=== PATIENT | female | born 1985 | race Caucasian/White ===

== ENCOUNTER 2017-08-30 18:43 | Emergency (ER) | payer BC ==
[2017-08-30 19:54] VITALS: BP 141/87
--- NOTE | 2017-08-30 20:58 | UC ---
Christine Harding Gabriel, scribed for Van Rivas MD on 08/30/17 at 2043 . FLU HPI - HPI Summary HPI Summary: This patient is a 32 year old F presenting to [facility] [place] with a chief complaint of a flu like illness since 08-28-17. The patient rates the pain 4/10 in severity. Patient reports nasal congestion, myalgia, CP, and cough. Patient denies fever and chills. 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 - History of Current Complaint Chief Complaint: UCGeneralIllness Stated Complaint: FLU-LIKE Time Seen by Provider: 08/30/17 20:02 Hx Obtained From: Patient Onset/Duration: Lasting Days, Still Present Severity Currently: Moderate Severity Initially: Moderate Pain Intensity: 4 Pain Scale Used: 0-10 Numeric Associated Signs & Symptoms: Positive: Myalgia, Cough, Nasal Congestion - Allergy/Home Medications Allergies/Adverse Reactions: Allergies Allergy/AdvReac Type Severity Reaction Status Date / Time No Known Allergies Allergy Verified 08/30/17 19:54 Home Medications: Home Medications Citalopram TAB* [Celexa TAB*] 10 mg PO DAILY 08/30/17 [History Confirmed ] LORazepam [Ativan 0.5 MG TAB] 0.5 mg PO Q6H PRN 08/30/17 [History Confirmed ] diPHENhydraMINE PO* [Benadryl PO 50 MG CAP*] 50 mg PO Q6H PRN 08/30/17 [History Confirmed 08/30/17] PMH/Surg Hx/FS Hx/Imm Hx Previously Healthy: Yes Other History Of: Negative For: HIV, Hepatitis B - Surgical History Surgical History: Yes Surgery Procedure, Year, and Place: 2007 WISDOM TEETH- [place], [place]. 2001 LEAP PROCEDURE- [place], [place] - Family History Known Family History: Positive: Cardiac Disease, Diabetes, Other - CVA Negative: Hypertension, Renal Disease, Respiratory Disease, Seizure Disorder - Social History Occupation: Employed Full-time Lives: With Family Alcohol Use: Daily Alcohol Amount: 3 WINE OR BEERS/DAY Substance Use Type: None Smoking Status (MU): Light Every Day Tobacco Smoker - 1 per day Have You Smoked in the Last Year: No Review of Systems ENT: Sinus Congestion Respiratory: Cough Cardiovascular: Chest Pain Musculoskeletal: Myalgia All Other Systems Reviewed And Are Negative: Yes Physical Exam Triage Information Reviewed: Yes Vital Signs: Initial Vital Signs Temp 97.8 F 08/30/17 19:50 Pulse 79 08/30/17 19:50 Resp 20 08/30/17 19:50 BP 141/87 08/30/17 19:50 Pulse Ox 100 08/30/17 19:50 Vital Signs Reviewed: Yes - Additional Comments VITAL SIGNS: Reviewed. GENERAL: Patient is a well developed and nourished F who is lying comfortable in the stretcher. Patient is not in any acute respiratory distress. HEAD AND FACE: Normocephalic EYES: PERRLA, EOMI x 2. EARS: Hearing grossly intact. MOUTH: Oropharynx within normal limits. NECK: Supple, trachea is midline, no adenopathy, no JVD, no carotid bruit. CHEST: Symmetric, no tenderness at palpation LUNGS: Clear to auscultation bilaterally. No wheezing or crackles. CVS: Regular rate and rhythm, S1 and S2 present, no murmurs or gallops appreciated. ABDOMEN: Soft, non-tender. Bowel sounds are normal. No abdominal abnormal pulsations. EXTREMITIES: Full ROM in all major joints, no edema, no cyanosis or clubbing. NEURO: Alert and oriented x 3. No acute neurological deficits. Speech is normal and follows commands. SKIN: Dry and warm Flu Course/Dx - Course Course Of Treatment: The patient was negative for influenza A and B. I discussed all the findings and test results with the patient. Pt was instructed to return to the urgent care or go to ER immediately if any of the symptoms return or worsens. Plan of care was discussed with the patient and pt understands and agrees. All questions were answered to patient satisfaction. There were no further complaints or concerns. The patient was found to have increase BP in UC. The patient will follow up with PCP for better control of BP. Patient was diagnosed with URI but requested Tamiflu. - Differential Dx/Diagnosis Differential Diagnosis/HQI/PQRI: Bronchitis, Influenza, Pneumonia, Upper Respiratory Infection Provider Diagnoses: URI, Elevated blood pressure without history of hypertension Discharge - Discharge Plan Condition: Stable Disposition: HOME Prescriptions: Oseltamivir CAP* [Tamiflu CAP*] 75 mg PO BID #10 cap Patient Education Materials: Upper Respiratory Infection (DC) Referrals: Almaz Longoria MD [Primary Care Provider] - Additional Instructions: Your blood pressure was elevated during todays visit; please follow up with your primary care provider within a week for further evaluation. The documentation as recorded by the Christine ling Gabriel accurately reflects the service I personally performed and the decisions made by me, Van Rivas MD.
== END 2017-08-30 20:45 | disposition home or self-care (01) ==
LOC: UCEAST 18:43
DX: J06.9 Acute upper respiratory infection, unspecified (principal); R03.0 Elevated blood-pressure reading, without diagnosis of hypertension; Z72.0 Tobacco use
CPT/HCPCS: 87502; 99212; G0463

== ENCOUNTER 2018-12-08 11:58 | Emergency (ER) | payer BC ==
[2018-12-08 12:39] VITALS: BP 118/67
--- NOTE | 2018-12-08 13:50 | UC ---
General HPI - HPI Summary HPI Summary: Yesterday developed sore throat, left ear pain, congestion, full body aches and chills. Took nyquil last night. No N/V/D. No rash. No cough. Feels run down. No documented temp. Meds: REviewed Worried her step son who is 8 yrs old is coming this weekend. Works as [employer] on [employer] - History of Current Complaint Chief Complaint: UCRespiratory Stated Complaint: EAR PAIN SORE THROAT CHILLS Time Seen by Provider: 12/08/18 13:44 Hx Last Menstrual Period: IUD in place Pain Intensity: 5 - Allergy/Home Medications Allergies/Adverse Reactions: Allergies Allergy/AdvReac Type Severity Reaction Status Date / Time No Known Allergies Allergy Verified 12/08/18 12:39 Home Medications: Home Medications Ascorbic Acid [Vitamin C] 500 mg PO ONCE PRN 12/08/18 [History Confirmed ] Dm/PE/Acetaminophen/Doxylamine [Vicks Nyquil Severe Cold-Flu] 1 each PO ONCE PRN 12/08/18 [History Confirmed 12/08/18] Ibuprofen 600 mg PO DAILY PRN 12/08/18 [History Confirmed 12/08/18] Multivitamin [Multivitamins] 1 cap PO ONCE PRN 12/08/18 [History Confirmed 12/08] PMH/Surg Hx/FS Hx/Imm Hx Previously Healthy: Yes Other History Of: Negative For: HIV, Hepatitis B - Surgical History Surgical History: Yes Surgery Procedure, Year, and Place: 2007 WISDOM TEETH- [place], [place]. 2001 LEAP PROCEDURE- [place], [place]. 2012, external fixation finger right hand - Family History Known Family History: Positive: Cardiac Disease, Diabetes, Other - CVA Negative: Hypertension, Renal Disease, Respiratory Disease, Seizure Disorder - Social History Alcohol Use: Daily Alcohol Amount: 3 WINE OR BEERS/DAY Substance Use Type: None Smoking Status (MU): Former Smoker Have You Smoked in the Last Year: No Review of Systems All Other Systems Reviewed And Are Negative: Yes Physical Exam Triage Information Reviewed: Yes Appearance: Well-Appearing Vital Signs: Initial Vital Signs Temp 98.7 F 12/08/18 12:32 Pulse 84 12/08/18 12:32 Resp 18 12/08/18 12:32 BP 118/67 12/08/18 12:32 Pulse Ox 100 12/08/18 12:32 ENT: Positive: Pharyngeal erythema, Nasal congestion, Other - clear fluid b/l Neck: Positive: Supple, Tenderness @ - anterior cervical chain on left Respiratory: Positive: Lungs clear, Normal breath sounds Cardiovascular: Positive: RRR, No Murmur Course/Dx - Course Course Of Treatment: This is a 33 yr old with with sore throat, body aches and congestion Assessment Nontoxic appearing Rapid strep: NEgative Flu: Negative Plan Flu and STrep are both negative Appears to be a viral syndrome Continue supportive care Continue to rest, fluids, ibuprofen as needed for pain/fever Can do sudafed during the day as a decongestant - Diagnoses Provider Diagnosis: Viral syndrome Discharge - Sign-Out/Discharge Documenting (check all that apply): Patient Departure All imaging exams completed and their final reports reviewed: No Studies - Discharge Plan Condition: Good Disposition: HOME Patient Education Materials: Viral Syndrome (ED) Referrals: Almaz Longoria MD [Primary Care Provider] - Additional Instructions: Flu and STrep are both negative Appears to be a viral syndrome Continue supportive care Continue to rest, fluids, ibuprofen as needed for pain/fever Can do sudafed during the day as a decongestant - Billing Disposition and Condition Condition: GOOD Disposition: Home
[2018-12-08 14:14] LABS: Influenza A Molecular NEGATIVE (Negative); Influenza B Molecular NEGATIVE (Negative)
== END 2018-12-08 14:31 | disposition home or self-care (01) ==
LOC: UCEAST 11:58
DX: B34.9 Viral infection, unspecified (principal); J02.9 Acute pharyngitis, unspecified; H92.02 Otalgia, left ear; Z87.891 Personal history of nicotine dependence
CPT/HCPCS: 87651; 99211; G0463

== ENCOUNTER 2019-04-13 07:02 | Emergency (ER) | payer BC ==
--- OUTSIDE RECORDS SUMMARY | 2019-04-13 07:06 | XMS REPORT | Continuity of Care Document ---
:1985 External Reference #:[id number] Author Name Rin Barahona NP (transmitted by agent of provider Quin Chandler) Address [address], [place] [address] Care Team Providers Name Role Phone Almaz Longoria MD - Internal Care Team Information Predatory Animal Exterminator [phone] Medicine Problems Description No Information Available Social History Type Date Description Comments Sex Unknown Tobacco Use Start: Unknown End: Former Cigarette Smoker Unknown 1-5 Cigarettes Daily Smoking Status Reviewed: 03/22/19 Former Cigarette Smoker 1-5 Cigarettes Daily ETOH Use Drinks 6 Alcoholic Beverages Per Week Tobacco Use Start: Unknown End: Patient is a former Unknown smoker Exercise Exercises regularly Horseback Riding 3-4 Type/Frequency times per week Allergies, Adverse Reactions, Alerts Description No Known Drug Allergies Medications Active Medications SIG Qnty Indications Ordering Date Provider Progesterone 1 by mouth every 30caps Heidi Lara, N.P. 12/16/2018 Micronized day 100mg Capsules Lorazepam 1 tablet by mouth Unknown 0.5mg Tablets as needed for sleep Liletta (52 MG) 11/2017 Unknown 19.5mcg/Day IUD Vitamin C 1 by mouth every Unknown 500mg day Capsules CBD Oil cbd oil 1 or 2 Unknown drops topically daily for joint pain Immunizations Description No Information Available Vital Signs Date Vital Result Comment 03/22/2019 3:00pm Height 68 inches 5'8" Weight 159.00 lb Heart Rate 51 /min BP Systolic 112 mmHg BP Diastolic 73 mmHg Body Temperature 97.9 F O2 % BldC Oximetry 100 % BMI (Body Mass Index) 24.2 kg/m2 02/23/2019 8:02am Height 68 inches 5'8" Weight 162.00 lb Heart Rate 67 /min BP Systolic 117 mmHg BP Diastolic 80 mmHg Body Temperature 98.2 F O2 % BldC Oximetry 99 % BMI (Body Mass Index) 24.6 kg/m2 Results Test Date Facility Test Result H/L Range Note Celiac Hla 02/27/2019 [facility] [id number] SEE BELOW 1 [address] [place] [address] [phone] [id number] SEE BELOW 2 Celiac Gene Pairs Present? 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 Negative Mthac Interpretation See Comment 6 Mthac Reviewed By See Comment 7 Laboratory test 02/27/2019 [facility] T3 Reverse 19 ng/dL 10- 24 8 finding [address] [place] [address] [phone] Vitamin B6 02/27/2019 [facility] Pyridoxal 56 g/L Abnormal 5 -50 9 [facility] 5[place] [address] [phone] Pyridoxic Acid 24 g/L 3-30 10 Anti Gliadin Igg And Iga 02/27/2019 [facility] Gliadin IgG < 10.0 U 11 AB [address] [place] [address] [phone] Gliadin IgA <10.0 U 12 Laboratory test 02/27/2019 [facility] Immunoglobulin A 112 mg/ dL 61 - 13 finding [facility] (Iga) [address] [place] [address] [phone] Heavy Metal 02/27/2019 [facility] Arsenic 2 ng/mL 0-12 14 [address] [address] [place] [address] [phone] Lead <1.0 g/dL 0.0-4.9 15 Mercury 2 ng/mL 0-9 16 Cadmium <0.2 ng/mL 0.0-4.[address] [facility] [place] [address] [facility]ly [facility] Guardian First Name MARIELLE Guardian Last Name KHANH Venous/Capillary Heavy Metals Venous Patient Race WHITE Submitting Laboratory Phone [phone] Laboratory test 02/27/2019 [facility] CRP High 0.72 mg/L < 2.00 finding [address] [facility] [place] [address] [phone] TSH (Thyroid Stim Horm) 2.92 mcIU/mL Normal 0.34-5.60 Free T4 (Free Thyroxine) 0.84 ng/dL Normal 0.61-1.12 Thyroxine 7.00 g/dL Normal 6.09-12.23 T3 Free 3.30 pg/mL Normal 2.5-3.9 T3 Total 88 ng/dL Normal 87-178 Ferritin 90.0 ng/mL Normal 11-307 Folic Acid (Folate) > 20.00 ng/mL >3.99 Vitamin B12 953 pg/mL High 180-914 19 Insulin Level 2.9 mcIU/mL Normal 2.0-16.0 Vitamin D Total 25(Oh) 27.3 ng/mL Normal 20-50 20 Thyroglobulin AB 0.0 IU/mL <4.0 Thyroperoxidase AB 0.19 IU/mL Normal <9 Homocysteine 8 mcmol/L 21 Copper, Serum 0.98 g/mL 0.75-1.45 22 Selenium 133 ng/mL 70-150 23 Zinc Serum 1.07 g/mL 0.66-1.10 24 Lipid Profile 02/27/2019 [facility] Triglycerides 90 mg/dL 25 (Trig/Chol/HDL) [address] [place] [address] [phone] Cholesterol 181 mg/dL 26 HDL Cholesterol 58.1 mg/dL 27 LDL Cholesterol 105 mg/dL 28 Comp Metabolic 02/27/2019 [facility] Sodium 139 mmol/L Normal 135-145 Panel [address] [place] [address] [phone] Potassium 4.6 mmol/L Normal 3.5-5.0 Chloride 105 mmol/L Normal 101-111 Co2 Carbon Dioxide 26 mmol/L Normal 22-32 Anion Gap 8 mmol/L Normal 2-11 Glucose 87 mg/dL Normal 70-100 Blood Urea Nitrogen 8 mg/dL Normal 6-24 Creatinine 0.80 mg/dL Normal 0.51-0.95 BUN/Creatinine Ratio 10.0 Normal 8-20 Calcium 9.3 mg/dL Normal 8.6-10.3 Total Protein 6.9 g/dL Normal 6.4-8.9 Albumin 4.9 g/dL Normal 3.2-5.2 Globulin 2.0 g/dL Normal 2-4 Albumin/Globulin Ratio 2.5 Normal 1-3 Total Bilirubin 0.70 mg/dL Normal 0.2-1.0 Alkaline Phosphatase 52 U/L Normal 34-104 Alt 16 U/L Normal 7-52 Ast 16 U/L Normal 13-39 Egfr Non- 82.1 >60 Egfr 99.4 >60 29 Laboratory test 02/27/2019 [facility] Erythrocyte Sed 6 mm/Hr Normal 0-[address] [place] [address] [phone] Hemoglobin A1c (Glyco HGB) 4.9 % Normal 4.0-5.6 30 CBC Auto 02/27/2019 [facility] White Blood 5.0 10^3/uL Normal 3.5-10.[address] [place] [address] [phone] Red Blood Count 4.31 10^6/uL Normal 3.70-4.87 Hemoglobin 14.2 g/dL Normal 12.0-16.0 Hematocrit 40 % Normal 35-47 Mean Corpuscular Volume 93 fL Normal 80-97 Mean Corpuscular Hemoglobin 33 pg High 27-31 Mean Corpuscular HGB Conc 35 g/dL Normal 31-36 Red Cell Distribution Width 13 % Normal 10-15 Platelet Count 260 10^3/uL Normal 150-450 Mean Platelet Volume 9.0 fL Normal 7.4-10.4 Abs Neutrophils 2.5 10^3/uL Normal 1.5-7.7 Abs Lymphocytes 2.0 10^3/uL Normal 1.0-4.8 Abs Monocytes 0.3 10^3/uL Normal 0-0.8 Abs Eosinophils 0.2 10^3/uL Normal 0-0.6 Abs Basophils 0.1 10^3/uL Normal 0-0.2 Abs Nucleated RBC 0.0 10^3/uL Granulocyte % 49.1 % Lymphocyte % 40.1 % Monocyte % 6.6 % Eosinophil % 3.0 % Basophil % 1.2 % Nucleated Red Blood Cells % 0.1 Laboratory test finding 02/23/2019 [facility] Vitamin B6 < pending> [address] [place] [address] [phone] Vitamin B12 And Folate 02/23/2019 [facility] Vitamin B12 < pending> Serum [address] [place] [address] [phone] Folic Acid (Folate) <pending> Laboratory test finding 02/23/2019 [facility] Ferritin <pending > [address] [place] [address] [phone] Selenium <pending> T3 Free <pending> T3 Reverse <pending> T3 Total <pending> TSH (Thyroid Stim Horm) <pending> Free T4 (Free Thyroxine) <pending> Thyroxine <pending> Vitamin D Total 25(Oh) <pending> Zinc Serum <pending> Laboratory test 02/23/2019 [facility] Insulin Level <pending> finding [address] [place] [address] [phone] Anti-Thyroid 02/23/2019 [facility] Thyroperoxidase AB <pending> Antibodies Screen [address] [place] [address] [phone] Thyroglobulin AB <pending> Laboratory test 02/23/2019 [facility] Hemoglobin A1c <pending> finding [address] (Glyco HGB) [place] [address] [phone] Homocysteine <pending> Immunoglobulin A (Iga) <pending> Laboratory test 02/23/2019 [facility] Copper, Serum <pending> finding [address] [place] [address] [phone] Erythrocyte Sed Rate <pending> Laboratory test 02/23/2019 [facility] CRP High <pending> finding [address] [place] [address] [phone] Laboratory test 01/07/2019 [facility] Cytology Non-Hand I Blocker SEE RESULT [address] [place] [address] [phone] Laboratory test 12/15/2018 [facility] Cytology SEE RESULT [address] [place] [address] [phone] 1 RESULT: 02:01,05:01 REFERENCE VALUE Not Applicable 2 RESULT: 02:01,02:02 DQ Serologic Equivalent: 2,2 REFERENCE VALUE Not Applicable 3 These genes are permissive for celiac disease. The absence of HLA celiac permissive genes would make the presence of celiac disease unlikely. However, these genes can also be present in the normal population. ADDITIONAL INFORMATION Method: Molecular typing of HLA antigens performed using reverse SSOP and/or SSP methods, reported as serological equivalents and low to medium resolution molecular values. Performing Laboratory CLIA# [id number] Test Performed by: [place] [id number] 4 This individual DOES NOT have the Methylenetetrahydrofolate reductase (MTHFR) C677T gene mutation. In the absence of the MTHFR C677T gene mutation, other causes of hyperhomocysteinemia should be considered (renal failure, zinc deficiency, leukemia, psoriasis, or antifolate drug therapy). If clinically indicated, suggest Coagulation Consultation 28504 (Thrombophilia Profile) to complete the evaluation for an inherited or acquired thrombosing disorder (i.e., thrombophilia). Consider genetic consultation and counseling of potentially affected family members regarding laboratory testing. ADDITIONAL INFORMATION This test is a direct mutation analysis using PCR amplification, signal generation and release by cleavage of sequence specific alleles ([employer], [employer], [place], [place]). This test has been modified from the morale officer's instructions. Its performance characteristics were determined by [facility] in a manner consistent with CLIA requirements. This test has not been cleared or approved by the U.S. Food and Drug Administration. 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 MTHAC Q4630S carriers are not at increased risk for thrombosis in the absence of hyperhomocysteinemia. In the absence of alternative causes, heterozygous carriers of MTHAC U9376J are not at increased risk for hyperhomocysteinemia. Hyperhomocysteinemia is a relatively weak risk factor for both venous thromboembolism and arterial thrombosis. The MTHAC T2776W gene mutation test does not detect other causes of hyperhomocysteinemia due to acquired disorders (renal failure, zinc deficiency, leukemia, psoriasis, or antifolate drug therapy). If clinically indicated, suggest Coagulation Consultation 11363 (Thrombophila Profile) to complete the evaluation for an inherited or acquired thrombosing disorder (i.e., thrombophilia). Consider genetic consultation and counseling of potentially affected family members regarding laboratory testing. ADDITIONAL INFORMATION This test is a direct mutation analysis using PCR amplification, signal generation and release by cleavage of sequence specific alleles ([employer], [employer], [place], [place]). This test has been modified from the morale officer's instructions. Its performance characteristics were determined by [facility] in a manner consistent with CLIA requirements. This test has not been cleared or approved by the U.S. Food and Drug Administration. 7 RESULT: CHRISTY Warner This test is a direct mutation analysis using PCR amplification, signal generation and release by cleavage of sequence specific alleles ([employer], [employer], [place], [place]). This test has been modified from the morale officer's instructions. Its performance characteristics were determined by [facility] in a manner consistent with CLIA requirements. This test has not been cleared or approved by the U.S. Food and Drug Administration. Test Performed by: [facility] - [facility] [address] [place] [address] 8 ADDITIONAL INFORMATION This test was developed and its performance characteristics determined by [facility] in a manner consistent with CLIA requirements. This test has not been cleared or approved by the U.S. Food and Drug Administration. Test Performed by: [facility] [address] [place] [address] 9 In this sample, the elevated pyridoxal 5-phosphate is likely related to dietary supplementation. ADDITIONAL INFORMATION This test was developed and its performance characteristics determined by [facility] in a manner consistent with CLIA requirements. This test has not been cleared or approved by the U.S. Food and Drug Administration. 10 ADDITIONAL INFORMATION This test was developed and its performance characteristics determined by [facility] in a manner consistent with CLIA requirements. This test has not been cleared or approved by the U.S. Food and Drug Administration. Test Performed by: [facility] - [address] [address] 11 REFERENCE VALUE <20.0 (Negative) Test Performed by: [facility] - [address] [address] 12 REFERENCE VALUE <20.0 (Negative) 13 Test Performed by: [facility] - [address] [address] 14 ADDITIONAL INFORMATION This test was developed and its performance characteristics determined by [facility] in a manner consistent with CLIA requirements. This test has not been cleared or approved by the U.S. Food and Drug Administration. 15 ADDITIONAL INFORMATION Testing performed by Inductively Coupled Plasma-Mass Spectrometry (ICP-MS). This test was developed and its performance characteristics determined by [facility] in a manner consistent with CLIA requirements. This test has not been cleared or approved by the U.S. Food and Drug Administration. 16 ADDITIONAL INFORMATION This test was developed and its performance characteristics determined by [facility] in a manner consistent with CLIA requirements. This test has not been cleared or approved by the U.S. Food and Drug Administration. 17 ADDITIONAL INFORMATION This test was developed and its performance characteristics determined by [facility] in a manner consistent with CLIA requirements. This test has not been cleared or approved by the U.S. Food and Drug Administration. 18 Test Performed by: [facility] [employer] [address] [place] [address] 19 Normal Range 180 to 914 Indeterminate Range 145 to 180 Deficient Range <145 20 Total 25-Hydroxyvitamin D2 and D3 (25-OH-VitD) <10 ng/mL (severe deficiency) 10-19 ng/mL (mild to moderate deficiency) 20-50 ng/mL (optimum levels) 51-80 ng/mL (increased risk of hypercalciuria) >80 ng/mL (toxicity possible) 21 REFERENCE VALUE <=13 (Fasting) ADDITIONAL INFORMATION This test was developed and its performance characteristics determined by [facility] in a manner consistent with CLIA requirements. This test has not been cleared or approved by the U.S. Food and Drug Administration. Test Performed by: [facility] [address] [place] [address] 22 ADDITIONAL INFORMATION This test was developed and its performance characteristics determined by [facility] in a manner consistent with CLIA requirements. This test has not been cleared or approved by the U.S. Food and Drug Administration. Test Performed by: [facility] - [address] [address] 23 ADDITIONAL INFORMATION This test was developed and its performance characteristics determined by [facility] in a manner consistent with CLIA requirements. This test has not been cleared or approved by the U.S. Food and Drug Administration. Test Performed by: [facility] - [address] [address] 24 ADDITIONAL INFORMATION This test was developed and its performance characteristics determined by [facility] in a manner consistent with CLIA requirements. This test has not been cleared or approved by the U.S. Food and Drug Administration. Test Performed by: [facility] - [address] [address] 25 Desirable: <150 Borderline High: 150-199 High: 200-499 Very High: >500 26 Desirable: <200 Borderline High: 200-239 High: >239 27 Low: <40 Desirable: 40-60 High: >60 28 Desirable: <100 Near Optimal: 100-129 Borderline High: 130-159 High: 160-189 Very High: >189 29 Because ethnic data is not always readily available, this report includes an eGFR for both -Americans and non- Americans. The National Kidney Disease Education Program (NKDEP) does not endorse the use of the MDRD equation for patients that are not between the ages of 18 and 70, are , have extremes of body size, muscle mass, or nutritional status, or are non- or non-. According to the National Kidney Foundation, irrespective of diagnosis, the stage of the disease is based on the level of kidney function: Stage Description GFR(mL/min/1.73 m(2)) 1 Kidney damage with normal or decreased GFR 90 2 Kidney damage with mild decrease in GFR 60-89 3 Moderate decrease in GFR 30-59 4 Severe decrease in GFR 15-29 5 Kidney failure <15 (or dialysis) 30 Therapeutic target for the treatment of diabetes mellitus patients is <7% HBA1C, and in selective patients <6.0%. Please refer to [place] [employer] diabetic care guidelines for further information. 31 SEE RESULT BELOW Name: MARIELLE DAVENPORT : [address]: Heidi Lara NP Acct: [id number] Unit: [id number] AGE: 33 Location: [facility] Re01/08/19 SEX: F Status: REG REF SPEC: [id number] FROILAN: 01/07/19-[address] [facility] [address]: Heidi Lara NP REQ: [id number] RECD: 01/08/19-1726 STATUS: SOUT _ ORDERED: PTH HANDLING CH, NG THIN LAYER COMMENTS: [id number] FINAL DIAGNOSIS Anal scraping: -- Benign appearing squamous epithelium. HPV, Rectal Source has been performed at [facility] in [place], [place]. The testing reveals: / (original report scanned into Pathology Results). Anal cytologic material - ANAL PAP FOR HPV TESTING GROSS DESCRIPTION Received anal pap in ThinPrep vial for HPV Testing done [facility]. Signed by and Reported on: Luiz Buchanan MD 0920 END OF REPORT DEPARTMENT OF PATHOLOGY, [address] [place] [address] Luiz Buchanan M.D. Director [facility] # [id number] 32 SEE RESULT BELOW Name: MARIELLE DAVENPORT : [address]: Heidi Lara STATISTICAL DEVELOPER Acct: [id number] Unit: [id number] AGE: 33 Location: [facility] Re12/15/18 SEX: F Status: REG REF SPEC: [id number] FROILAN: 12/15/18-[address]: Heidi Lara NP Q: [id number] RECD: 12/16/18 STATUS: SOUT _ ORDERED: TP IMAGE ANALYS, HPV/Thin Prep COMMENTS: [id number] Negative for Intraepithelial lesion or Malignancy Date Time Test Result Flag (u) Normal Range 12/15/18 1705 HPV RNA Negative Negative The high-risk HPV types detected by the assay include: 16, 18, 31, 33, 35, 39, 45, 51, 52, 56, 58, 59, 66, and 68. A. Ectocervical/Endocervical Specimen Adequacy: Satisfactory of evaluation Transformation zone component identified Patient Information: HPV: High risk HPV RNA testing regardless of pap results. Actual Specimen Date: 12/15/18 ?: N Post Menopausal?: N Hysterectomy?: N Signed by and Reported on: CROW Piper (ASCP) [id number] This Pap test was evaluated with the assistance of the ThinPrep Test Imaging System. Due to cytologic findings at the banking services advisor microscope, comprehensive manual rescreening by a Manager Of Finance may be required. The Pap Smear is a screening test designed to aid in the detection of premalignant and malignant conditions of the uterine cervix. It is not a diagnostic procedure and should not be used as the sole means of detecting cervical cancer. Both false- positive and false- negative reports do occur. Depending on your risk status, a Pap smear should be obtained and evaluated every 1-3 years. END OF REPORT DEPARTMENT OF PATHOLOGY, [address] [place] [address] Luiz Buchanan M.D. Director [facility] # [id number] Procedures Description No Information Available Medical Devices Description No Information Available Encounters Type Date Location Provider Dx Diagnosis Office Visit 01/11/2019 [facility] Pedro Mercedes MD R10.2 Pelvic and 9:30a [facility] at perineal pain [place] N92.5 Other specified irregular menstruation Office Visit 01/08/2019 3:00p [facility] Heidi Lara, R10.2 Pelvic and [facility] N.P. 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 N.P. perineal pain N92.5 Other specified irregular menstruation N94.12 Deep dyspareunia R35.1 Nocturia Assessments Date Code Description Provider 03/22/2019 R53.83 Other fatigue Rin Barahona, STATISTICAL DEVELOPER 03/22/2019 F41.9 Anxiety disorder, unspecified Rin [place], STATISTICAL DEVELOPER 03/22/2019 E72.12 Methylenetetrahydrofolate reductase deficiency Rin Barahona, STATISTICAL DEVELOPER 03/22/2019 K59.00 Constipation, unspecified Rin [place], STATISTICAL DEVELOPER 02/23/2019 R53.83 Other fatigue Rin [place], STATISTICAL DEVELOPER 02/23/2019 F41.9 Anxiety disorder, unspecified Rin [place], STATISTICAL DEVELOPER 02/23/2019 G89.29 Other chronic pain iRn Barahona, STATISTICAL DEVELOPER 02/23/2019 K59.00 Constipation, unspecified Rin Brooklyn, STATISTICAL DEVELOPER 02/23/2019 G47.00 Insomnia, unspecified Rin Barahona, TONY 02/23/2019 N92.5 Other specified irregular menstruation Rin Barahona NP 01/11/2019 R10.2 Pelvic and perineal pain Pedro Mercedes MD 01/11/2019 N92.5 Other specified irregular menstruation Pedro Mercedes MD 01/08/2019 R10.2 Pelvic and perineal pain Heidi Lara N.P. 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 uteri 12/15/2018 R10.2 Pelvic and perineal pain Heidi Lara N.P. 12/15/2018 N92.5 Other specified irregular menstruation Heidi Lara N.P. 12/15/2018 N94.12 Deep dyspareunia Heidi Lara N.P. 12/15/2018 R35.1 Nocturia Heidi Lara N.P. Plan of Treatment 03/22/2019 - Rin Barahona, NPR53.83 Other fatigueRecommendations:Daily exercise, stress reduction, and good sleep hygiene. Focus on a nutrient dense diet heavily plant based, protein with every meal, healthy fats, little to no sugar. Recommend continuing on a gluten free diet for a total of 3 months ( strictly) as you do have the celiac genes pairs which places youat a higher risk for non-celiac gluten sensitivity. 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 Be sure to go for the activated forms of folate, B6, and B12: 1.B complex: - would hold off on this for now L-5-MTHF Folate: Methylfolate B6: Norxxbyol-1-Zfwhxtebh (P5P) B12: Methylcobalamine support liver detoxification : 2. NAC (Acetyl Cysteine) 600 mg twice daily3. Milk thistle and Nettle tea 4. Sweat! exercise, saunas 5. [place] oil liver packs a few times a month 6. Dry [place]ander daily Your homocysteine level is 8 ([facility] lab states <13 is normal) - Functional Medicine has an optimal ranger (evidence based) between 4-7. This could be multifactorial and could belinked to a problem with methylation. Healthy methylation pathways and balanced homocysteine levels protect your DNA. Methylation helps keep good genes turned on and bad genes turned off, but when methylation is impaired, it can trigger an autoimmune response. Your body has built-in systems to keep homocysteine levels in check ?? namely methylation. However, to have healthy methylation pathways, yourbody needs beneficial methyl donors ?? B vitamins in particular ?? from the foods you eat, which convert homocysteine to SAMe and glutathione. For this reason, high homocysteine levels can also be a consequence of poor absorption of B vitamins. Strict vegetarians and vegans can also be prone to methylation impairments due to a potential deficiency of vitamin B12. These are just some of the factors that can raise homocysteine.K59.00 Constipation, unspecifiedRecommendations:plan for SIBO test - once sent in 2 weeks get back me. schedule follow up 2-3 weeks after test Functional Status Description No Information Available Mental Status Description No Information Available Referrals Description No Information Available
--- OUTSIDE RECORDS SUMMARY | 2019-04-13 07:06 | XMS REPORT | Continuity of Care Document ---
:1985 External Reference #:[id number] Author Name Rin Barahona NP (transmitted by agent of provider Quin Chandler) Address [address], [place] [address] Care Team Providers Name Role Phone Almaz Longoria MD - Internal Care Team Information Health Care Liaison Medicine Problems Description No Information Available Social History Type Date Description Comments Sex Unknown Tobacco Use Start: Unknown End: Former Cigarette Smoker Unknown 1-5 Cigarettes Daily Smoking Status Reviewed: 01/11/19 Former Cigarette Smoker 1-5 Cigarettes Daily ETOH Use Drinks 6 Alcoholic Beverages Per Week Tobacco Use Start: Unknown End: Patient is a former Unknown smoker Exercise Exercises regularly Horseback Riding 3-4 Type/Frequency times per week Allergies, Adverse Reactions, Alerts Description No Known Drug Allergies Medications Active Medications SIG Qnty Indications Ordering Provider Date Progesterone 1 by mouth every 30caps Heidi Lara, N.P. 12/16/2018 Micronized day 100mg Capsules Lorazepam 1 tablet by Unknown 0.5mg Tablets mouth as needed for sleep Liletta (52 MG) 11/2017 Unknown 19.5mcg/Day IUD Immunizations Description No Information Available Vital Signs Date Vital Result Comment 02/23/2019 8:02am Height 68 inches 5'8" Weight 162.00 lb Heart Rate 67 /min BP Systolic 117 mmHg BP Diastolic 80 mmHg Body Temperature 98.2 F O2 % BldC Oximetry 99 % BMI (Body Mass Index) 24.6 kg/m2 01/11/2019 9:42am Height 68 inches 5'8" Weight 170.00 lb Heart Rate 68 /min BP Systolic Sitting 108 mmHg BP Diastolic Sitting 72 mmHg Respiratory Rate 16 /min Body Temperature 98.3 F O2 % BldC Oximetry 97 % BMI (Body Mass Index) 25.8 kg/m2 Results Test Date Facility Test Result H/L Range Note Laboratory test 02/23/2019 [facility] Vitamin B6 <pending> [address] [place] [place] [address] [phone] Vitamin B12 And 02/23/2019 [facility] Vitamin B12 <pending> Folate Serum [address] [place] [address] [phone] Folic Acid (Folate) <pending> Laboratory test finding 02/23/2019 [facility] Ferritin <pending > [address] [address] [phone] Selenium <pending> T3 Free <pending> T3 Reverse <pending> T3 Total <pending> TSH (Thyroid Stim Horm) <pending> Free T4 (Free Thyroxine) <pending> Thyroxine <pending> Vitamin D Total 25(Oh) <pending> Zinc Serum <pending> Laboratory test 02/23/2019 [facility] Insulin Level <pending> [address] [place], [place] [id number] [phone] Anti-Thyroid 02/23/2019 [facility] Thyroperoxidase AB <pending> [place] [address] [phone] Thyroglobulin AB <pending> Laboratory test 02/23/2019 [facility] Hemoglobin A1c <pending> finding (Glyco HGB) [place] [address] [phone] Homocysteine <pending> Immunoglobulin A (Iga) <pending> Laboratory test 02/23/2019 [facility] Copper, Serum <pending> [place] [address] [phone] Erythrocyte Sed Rate <pending> Laboratory test 02/23/2019 [facility] CRP High <pending> [place] [address] [phone] Laboratory test 01/07/2019 [facility] Cytology Non-Vacuum Spindle Sander SEE RESULT [address] [place] [address] [phone] Laboratory test 12/15/2018 [facility] Cytology SEE RESULT [address] [place] [address] [phone] 1 SEE RESULT BELOW Name: MARIELLE DAVENPORT : [address]: Heidi Lara VIROLOGY TEACHER Acct: [id number] Unit: [id number] AGE: 33 Location: [facility] Re01/08/19 SEX: F Status: REG REF SPEC: [id number] FROILAN: 01/07/19-[address]: Heidi Lara VIROLOGY TEACHER REQ: [id number] RECD: 01/08/19 STATUS: SOUT _ ORDERED: BREANNA SMITH CH THIN LAYER COMMENTS: [id number] FINAL DIAGNOSIS Anal scraping: -- Benign appearing squamous epithelium. HPV, Rectal Source has been performed at [facility] in [place], [place]. The testing reveals: / (original report scanned into Pathology Results). Anal cytologic material - ANAL PAP FOR HPV TESTING GROSS DESCRIPTION Received anal pap in ThinPrep vial for HPV Testing done [facility]. Signed by and Reported on: Luiz Buchanan MD 2148 END OF REPORT DEPARTMENT OF PATHOLOGY, [address] [place] [address] Luiz Buchanan M.D. Director [facility] # [id number] 2 SEE RESULT BELOW Name: KHANHMARIELLE : [address]: Heidi Lara VIROLOGY TEACHER Acct: [id number] Unit: [id number] AGE: 33 Location: [facility] Re12/15/18 SEX: F Status: REG REF SPEC: [id number] FROILAN: 12/15/18-[address]: Heidi Lara VIROLOGY TEACHER REQ: [id number] RECD: 12/16/18 STATUS: SOUT _ ORDERED: TP IMAGE ANALYS, HPV/Thin Prep COMMENTS: [id number] Negative for Intraepithelial lesion or Malignancy Date [...] Signed by and Reported on: CROW Piper ([facility]) [id number] This Pap test was evaluated with the assistance of the XLV DiagnosticsPrep Test Imaging System. Due to cytologic findings at the assurance senior microscope, comprehensive manual rescreening by a Egg Sorter may be required. The Pap Smear is [...] years. END OF REPORT DEPARTMENT OF PATHOLOGY, [address] [place] [address] Luiz Buchanan M.D. Director [facility] # [id number] Procedures Description No Information Available Medical Devices Description No Information Available Encounters Type Date Location Provider Dx Diagnosis Office Visit 01/11/2019 [facility] Pedro Mercedes MD R10.2 Pelvic and 9:30a [facility] at perineal pain Gerry N92.5 Other specified irregular menstruation Office Visit 01/08/2019 3:00p [facility] Heidi Lara R10.2 Pelvic and [facility] N.P. 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 perineal pain N92.5 Other specified irregular menstruation N94.12 Deep dyspareunia R35.1 Nocturia Assessments Date Code Description Provider 02/23/2019 R53.83 Other fatigue Rin Barahona, VIROLOGY TEACHER 02/23/2019 F41.9 Anxiety disorder, unspecified Rin [place], VIROLOGY TEACHER 02/23/2019 G89.29 Other chronic pain Rin Barahona, VIROLOGY TEACHER 02/23/2019 K59.00 Constipation, unspecified Rin [place], VIROLOGY TEACHER 02/23/2019 G47.00 Insomnia, unspecified Rin [place], VIROLOGY TEACHER 02/23/2019 N92.5 Other specified irregular menstruation Rin [place], VIROLOGY TEACHER 01/11/2019 R10.2 Pelvic and perineal pain Pedro [...] Nocturia Heidi Lara N.P. Plan of Treatment Future Appointment(s):03/22/2019 3:00 pm - Rin Barahona VIROLOGY TEACHER at [facility]02/23/2019 - Rin Barahona, NPR53.83 Other fatigueFollow up:follow up 4 weeksRecommendations:Fatigue is multi-factorial food sensitivities can play a role. An elimination diet is a validated approach to try to pin point food sensitivities. As well your thyroid has not been checked in a while - plan to check a thyroid panel. Increase healthy fats in the diet with cold pressed extra virgin olive oil, flax seed, hemp oil, fish oil (wild caught EPA/DHA). Nuts, seeds, avocado. Stress can play a large role in fatigue. Daily stress relaxation techniques. Sleep: sleeping 8 hours a day. Exercise: 30-60 minutes daily of exercise. Keeping your blood sugar stable removing high glycemic foods.Adrenal fatigue (HPA [place] dysregulation) - Lifestyle changes can make a difference. Stress is a hugedriver. Sleep is very important as is diet and exercise. Consider stress reduction techniques. Screening Tests: It is important to be up to date on your screening tests for your age Good Resources Dr. Miguel Ann - Ketotarian Cookbook www.dietAntavo.Surgimatix - low carb/keto diet website run by a physician great resource!! Dr. Chandrakant Fitzpatrick - two books: The Nanette protocol and her cookbook: Cooking for Life- Intermittent fasting 26/02 not eating after 6/7 pm - there is good evidence that time restricted eating can help with weight loss and maintaining weight loss, it also promotes cellular clean up. You can start with a 12 hour fast overnight then inch your way to 16 hours. It is important to eat nutrient dense meals in your 8 hour window! A good breakfast/Snack could be: amilcar seed pudding with almond/cashew or hemp milk (unsweetened), 1 cup milk to 3 tablespoons amilcar seeds. add vanilla, cinnamon (nosugar), can also add unsweetened coconut flakes. Can top with berries, walnuts - high in fiber, protein and low carb. Can be made the night before. Smoothie: 1 canned coconut milk, cup of greens (kale, spinach), 1/2 avocado, a little water/ice, fresh danelle (tablespoon or to taste), fresh or concentrated jena juice.F41.9 Anxiety disorder, unspecifiedRecommendations:engaging any mindfulness practice daily will also help heal your HPA axis dysregulation. guided meditation, consider [facility] cj STRESS FREE. Consider MBSR 8 week program this year. offered in [place] at [facility] every few months. Do ??4-7-8?? breathing: Breathe in through nose for 4 counts Hold your breath for 7 counts Exhale through mouth for 8 counts This combination of count ratioslows heart rate and relaxes the sympathetic nervous system.G89.29 Other chronic painRecommendations: Nutrient Support for Inflammation: Ridge-3 fatty acids - 2000 mg/day (non GMO, low Mercury fish oil) Turmeric - 1000 mg/day split in several doses Vitamin C 1000 mg day Zinc 15 mg day N-acetyl cysteine 600 mg twice daily Vitamin D 2000 units/day CuraPro by [employer] 750 mg - Take 1 capsule twicedaily. Please take with food. Potent anti-inflammatory support for daily use or as needed (if you take this than do not take the turmeric) Ultimate Antiox Full Spectrum by [employer] for Health: Take 1 capsules three times daily. Please take with food. First-line defense for healthy joints. Provides necessary cellular nutrition and supports healthy inflammatory response. If you have endometriosis or think you do - I would recommend an AIP (autoimmune Paleo diet) for 30-90 days to see if your symptomsimprove. What can you eat on the AIP diet? All animal proteins (excluding eggs) All vegetables (excluding nightshades) Fruits in moderation Healthy fats (avocado, olive oil, coconut oil, animal fats, etc.) Bone broth, organ meats Grain-free baking flours (cassava, tigernut, tapioca, coconut, etc. ) What should you avoid? All grains (wheat, oats, rice, corn, etc.) All dairy ( all dairy of all types) All legumes (all beans such as lentils, black beans, chickpeas, and vegetables like green beans as well as peanuts) Nightshade vegetables and spices (tomatoes, potatoes, eggplant, all peppers, red spices) All nuts and seeds Seed based spices (mustard, cumin, sesame, etc.) Eggs Soy Thickeners, gums, and food additives Poor quality seed oils (sunflower oil, canola oil, soybean oil, etc.) Foods that can negatively impact immune function: Lectins: Lectins are carbohydrate-binding proteins that are present in all foods but can be difficult to digest and increase gut barrier damage. Toxic lectins are found in legumes and grains. Soaking, sprouting, and fermenting decrease lectin content. Phytic Acid: phytic acid is a component of grains, seeds, and legumes that limits the activity of digestive enzymes. This can damage the gut barrier and contribute to dysbiosis. Soaking, sprouting, and fermenting decrease phytic content. Gluten: gluten is a component of many grain products such as wheat, barley andrye. Exposure to gluten can activate zonulin in the intestines and contribute to intestinal permeability. Lactose and Casein: certain components of milk can contribute to intestinal permeability , especially if they have gone through traditional pasteurization and homogenization. The negative effects of the resulting protein changes can be decreased, as in the case of grass fed milk from cows. Nightshade: These plants contain an alkaloid that can be detrimental to the intestinal barrier. Nightshades include tomatoes, peppers, and eggplants. Research LDN (low dose Naltrexone) -K59.00 Constipation, unspecifiedRecommendations:increase leafy green vegetables. Consume plenty of water Remove dairy and gluten for 30-60 days to see if you have improvement Consider stool testing with Brenda stool test 2.0 Consider breath test forSIBO with Brenda testing Physical activity - daily Antrantil 2 capsule three times a day until symptoms improve then 2 capsules twice daily consider digestive enzymes with meals Increase fiber intake.G47.00 Insomnia, unspecifiedRecommendations:Please read hand out cessation of alcohol or greatly reduce.N92.5 Other specified irregular menstruationRecommendations:Recommend: Magnesium Glycinate 400 mg po daily Functional Status Description No Information Available Mental Status Description No Information Available Referrals Description No Information Available
[2019-04-13 07:13] VITALS: BP 136/87
[2019-04-13] MEDS ORDERED: predniSONE TAB* 20 MG PO ONE (07:30)
--- NOTE | 2019-04-13 07:34 | UC ---
Skin Complaint HPI - HPI Summary HPI Summary: The patient is a 33 yo female with the onset of a rash one week ago No relief with OTC antihistamines or HC cr VERY pruritic started 2 days after being stung by a yellow jacket no cp or spb no throat tightness no swelling lips/hands/feet - History of Current Complaint Chief Complaint: UCRash Time Seen by Provider: 04/13/19 07:22 Stated Complaint: rasH Hx Obtained From: Patient Hx Last Menstrual Period: IUD Onset/Duration: Gradual Onset, Lasting Days Timing: Constant Onset Severity: Mild Current Severity: Moderate Pain Intensity: 0 Pain Scale Used: 0-10 Numeric Location: Diffuse Character: Pruritus, Hives, Redness, Raised Aggravating Factor(s): Clothing, Touch Associated Signs & Symptoms: Positive: Rash. Negative: Nausea, Vomiting, Numbness, Thirst, Diaphoresis, Weakness, Pallor, Shivering, Difficulty Breathing , Fever, Chills, Cough, Wheezing, Chest Pain, Hoarseness, Throat Tightening, Abdominal Pain, Lightheadedness, Syncope, Drainage, Bruising, Tenderness, Red Streaks, Joint Swelling - Allergy/Home Medications Allergies/Adverse Reactions: Allergies Allergy/AdvReac Type Severity Reaction Status Date / Time No Known Allergies Allergy Verified 04/13/19 07:13 PMH/Surg Hx/FS Hx/Imm Hx Previously Healthy: Yes Other History Of: Negative For: HIV, Hepatitis B - Surgical History Surgical History: Yes Surgery Procedure, Year, and Place: 2007 WISDOM TEETH- [place], [place]. 2001 LEAP PROCEDURE- [place], [place]. 2012, external fixation finger right hand - Family History Known Family History: Positive: Cardiac Disease, Diabetes, Other - CVA Negative: Hypertension, Renal Disease, Respiratory Disease, Seizure Disorder - Social History Alcohol Use: Daily Alcohol Amount: 3 WINE OR BEERS/DAY Substance Use Type: None Smoking Status (MU): Current Some Day Smoker Have You Smoked in the Last Year: No Review of Systems All Other Systems Reviewed And Are Negative: Yes Constitutional: Positive: Negative Skin: Positive: Rash Eyes: Positive: Negative ENT: Positive: Negative Respiratory: Positive: Negative Cardiovascular: Positive: Negative Gastrointestinal: Positive: Negative Genitourinary: Positive: Negative Motor: Positive: Negative Neurovascular: Positive: Negative Musculoskeletal: Positive: Negative Neurological: Positive: Negative Psychological: Positive: Negative Physical Exam Triage Information Reviewed: Yes Appearance: Well-Appearing, No Pain Distress, Well-Nourished Vital Signs: Initial Vital Signs Temp 97.6 F 04/13/19 07:09 Pulse 64 04/13/19 07:09 Resp 18 04/13/19 07:09 BP 136/87 04/13/19 07:09 Pulse Ox 99 04/13/19 07:09 Eyes: Positive: Conjunctiva Clear ENT: Positive: Hearing grossly normal, Pharynx normal, Uvula midline. Negative : Nasal congestion, Nasal drainage, Muffled voice, Hoarse voice Neck: Positive: Supple, Nontender Respiratory Exam: Normal Respiratory: Positive: Lungs clear, Normal breath sounds, No respiratory distress, No accessory muscle use Cardiovascular: Positive: RRR, No Murmur Musculoskeletal: Positive: ROM Intact, No Edema Neurological: Positive: Alert Psychological Exam: Normal Skin Exam: Other - hives, dermatographia Course/Dx - Diagnoses Provider Diagnosis: Hives, Elevated BP without diagnosis of hypertension Discharge ED - Sign-Out/Discharge Documenting (check all that apply): Patient Departure All imaging exams completed and their final reports reviewed: No Studies - Discharge Plan Condition: Stable Disposition: HOME Prescriptions: Fluconazole 150 MG (NF) [Diflucan 150 mg (NF)] 150 mg PO ONCE #1 tab predniSONE [Deltasone 20 MG TAB] 40 mg PO DAILY #10 tab Patient Education Materials: Urticaria (ED) Referrals: Guru Almonte MD [Medical Doctor] - If Needed Alfredito Barragan MD [Medical Doctor] - If Needed (Recheck if rash recurs after stopping prednison) Almaz Longoria MD [Primary Care Provider] - 2 Weeks (BP recheck in 2-12 weeks) Additional Instructions: I am unsure if this rash is related to the yellow jacket sting Usually this will occur soon after the sting and not 24-48 hours later get re-seen for new symptoms or if rash recurs after you stop the prednisone - Billing Disposition and Condition Condition: STABLE Disposition: Home
== END 2019-04-13 07:42 | disposition home or self-care (01) ==
LOC: UCEAST 07:02
DX: L50.9 Urticaria, unspecified (principal); R03.0 Elevated blood-pressure reading, without diagnosis of hypertension; F17.200 Nicotine dependence, unspecified, uncomplicated
CPT/HCPCS: 99212; G0463; J7512

== ENCOUNTER 2019-07-30 10:50 | Emergency (ER) | payer BC ==
--- NOTE | 2019-07-30 12:35 | UC ---
Skin Complaint HPI - HPI Summary HPI Summary: 34-year-old female presents with complaints of a pruritic rash to her arms, abdomen, lower back and buttocks that started 2 days ago. States she started a new multivitamin with tumeric the same day her symptoms started however patient was seen here on 04/13/2019 for similar symptoms in noted the rash started after being stung by a bee. She was placed on a course of prednisone and referred to an register repairer however because the rash subsided she did not make that appointment. She has since made an appointment scheduled to see her register repairer on 09/27/2019. She has taken one dose of Benadryl yesterday with little improvement in her symptoms. Denies swelling of the lips, tongue, throat, difficulty breathing, changes in diet, soaps, detergents, lotions, cosmetics, or recent exposure to known environmental irritants. - History of Current Complaint Chief Complaint: UCRash Time Seen by Provider: 07/30/19 12:09 Stated Complaint: ALLERGIC REACTION/RASH Hx Obtained From: Patient Hx Last Menstrual Period: iud Pain Intensity: 0 - Allergy/Home Medications Allergies/Adverse Reactions: Allergies Allergy/AdvReac Type Severity Reaction Status Date / Time No Known Allergies Allergy Verified 07/30/19 11:15 PMH/Surg Hx/FS Hx/Imm Hx Previously Healthy: Yes - Denies significant PMH Other History Of: Negative For: HIV, Hepatitis B - Surgical History Surgical History: Yes Surgery Procedure, Year, and Place: 2007 WISDOM TEETH- [place], [place]. 2001 LEAP PROCEDURE- [place], [place]. 2012, external fixation finger right hand - Family History Known Family History: Positive: Cardiac Disease, Diabetes, Other - CVA Negative: Hypertension, Renal Disease, Respiratory Disease, Seizure Disorder - Social History Occupation: Employed Full-time Lives: With Family Alcohol Use: Daily Alcohol Amount: 3 WINE OR BEERS/DAY Substance Use Type: None Smoking Status (MU): Former Smoker Have You Smoked in the Last Year: No Review of Systems All Other Systems Reviewed And Are Negative: Yes Constitutional: Negative: Fever, Chills Skin: Positive: Rash ENT: Negative: Other - Swelling of lips, tongue, or throat Respiratory: Negative: Shortness Of Breath Cardiovascular: Positive: Negative Gastrointestinal: Positive: Negative Genitourinary: Positive: Negative Musculoskeletal: Positive: Negative Neurological: Positive: Negative Is Patient Immunocompromised?: No Physical Exam - Summary Physical Exam Summary: GENERAL APPEARANCE: Well developed, well nourished, alert and cooperative, and appears to be in no acute distress. MOUTH/THROAT: No swelling of the lips or tongue. Pharynx normal. No tonsilar inflammation, swelling, exudate, or lesions. Airway patent. CARDIAC: Normal S1 and S2. No S3, S4 or murmurs. Rhythm is regular. There is no peripheral edema, cyanosis or pallor. Extremities are warm and well perfused. Capillary refill is less than 2 seconds. Peripheral pulses intact. LUNGS: Clear to auscultation without rales, rhonchi, wheezing or diminished breath sounds. ABDOMEN: Positive bowel sounds. Soft, nondistended, nontender. No guarding or rebound. No masses or hepatosplenomegally. MUSKULOSKELETAL: ROM intact to all extremities. No joint erythema or tenderness. Normal muscular development. Normal gait. SKIN: Skin normal color, texture and turgor. Fine, diffuse maculopapular rash to bilateral arms, abdomen, and lower back. Triage Information Reviewed: Yes Vital Signs: Initial Vital Signs Temp 98 F 07/30/19 11:12 Pulse 58 07/30/19 11:12 Resp 16 07/30/19 11:12 BP 130/82 07/30/19 11:12 Pulse Ox 100 07/30/19 11:12 Vital Signs Reviewed: Yes Course/Dx - Course Course Of Treatment: 34-year-old female presents with complaints of a pruritic rash to her arms, abdomen, lower back and buttocks that started 2 days ago. States she started a new multivitamin with tumeric the same day her symptoms started however patient was seen here on 04/13/2019 for similar symptoms in noted the rash started after being stung by a bee. She was placed on a course of prednisone and referred to an register repairer however because the rash subsided she did not make that appointment. She has since made an appointment scheduled to see her register repairer on 09/27/2019. She has taken one dose of Benadryl yesterday with little improvement in her symptoms. Denies swelling of the lips, tongue, throat, difficulty breathing, changes in diet, soaps, detergents, lotions, cosmetics, or recent exposure to known environmental irritants. Afebrile. Vital signs stable. Patient had no swelling of the lips, tongue, throat, airway was patent , bilateral breath sounds are clear, she had a fine, diffuse maculopapular rash to bilateral arms, abdomen, and lower back, otherwise unremarkable exam. We'll place her on a course of prednisone 40 mg daily 5 days and recommended she use an [id number] nondrowsy antihistamine for the itching. She is to follow- up with her primary care provider in 3-5 days if symptoms are not improving and recommended to keep her appointment with her register repairer as scheduled. Anticipatory guidance and warning symptoms were reviewed with the patient. Verbalizes understanding and agrees with plan of care. - Differential Diagnoses - Skin Complaint Differential Diagnoses: Allergic Reaction, Anaphylaxis, Contact Dermatitis, Drug Rash, Local Allergic Reaction, Urticaria - Diagnoses Provider Diagnosis: Pruritic rash Discharge ED - Sign-Out/Discharge Documenting (check all that apply): Patient Departure All imaging exams completed and their final reports reviewed: No Studies - Discharge Plan Condition: Stable Disposition: HOME Prescriptions: predniSONE 20 mg TAB [Deltasone 20 MG TAB*] 40 mg PO DAILY 5 Days #10 tab Patient Education Materials: Acute Rash (ED) Referrals: Amlaz Longoria MD [Primary Care Provider] - Additional Instructions: I would recommend stopping the multivitamin with tumeric that she recently started as this could possibly be the cause of her rash. Start prednisone 40 mg daily for the next 5 days. He may take an [id number] nondrowsy antihistamine such as Zyrtec, Claritin , for Jodi 1 tablet twice daily to help with the itching. You may take the generic forms of these medications. Sure to keep your appointment with your register repairer as scheduled. Follow-up with your primary care provider in 3-5 days if symptoms are not improving. Seek immediate medical attention in the emergency room if you develop any swelling of the lips, tongue, throat, or have any difficulty breathing. - Billing Disposition and Condition Condition: STABLE Disposition: Home
[2019-07-30 13:10] VITALS: BP 131/71
== END 2019-07-30 13:09 | disposition home or self-care (01) ==
LOC: UCEAST 10:50
DX: L29.9 Pruritus, unspecified (principal); Z87.891 Personal history of nicotine dependence
CPT/HCPCS: 99212; G0463

== ENCOUNTER 2020-05-24 11:00 | Inpatient (IN) ==
[2020-05-24 12:25] LABS: ABS Eosinophils 0.1 10^3/ul (0-0.6); ABS Lymphocytes 1.4 10^3/ul (1.0-4.8); ABS Monocytes 0.3 10^3/ul (0-0.8); ABS Neutrophils 5.3 10^3/ul (1.5-7.7); Eosinophil % 0.9 %; Hematocrit 40 % (35-47); Hemoglobin 14.2 g/dL (12.0-16.0); Lymphocyte % 20.1 %; Mean Corpuscular HGB Conc 35 g/dL (31-36); Mean Corpuscular Hemoglobin 33 pg (27-31); Mean Corpuscular Volume 94 fL (80-97); Mean Platelet Volume 8.6 fL (7.4-10.4); Platelet Count 228 10^3/uL (150-450); Red Blood Count 4.31 10^6 /uL (3.70-4.87); Red Cell Distribution Width 12 % (10-15); White Blood Count 7.1 10^3/uL (3.5-10.8)
[2020-05-24 12:40] LABS: ALT 14 U/L (7-52); AST 14 U/L (13-39); Albumin 4.8 g/dL (3.2-5.2); Albumin/Globulin Ratio 2.3 (1-3); Alkaline Phosphatase 41 U/L (34-104); Anion Gap 5 mmol/L (2-11); BUN/Creatinine Ratio 25.4 (8-20); Blood Urea Nitrogen 18 mg/dL (6-24); C Reactive Protein 1.46 mg/L (<8.01); CO2 Carbon Dioxide 26 mmol/L (22-32); Calcium 9.3 mg/dL (8.6-10.3); Chloride 103 mmol/L (101-111); EGFR African American 113.4 (>60); EGFR Non-African American 93.7 (>60); Globulin 2.1 g/dL (2-4); Glucose 94 mg/dL (70-100); Sodium 134 mmol/L (135-145); Total Protein 6.9 g/dL (6.4-8.9)
[2020-05-24 14:21] LABS: Erythrocyte Sed Rate 2 mm/Hr (0-19)
[2020-05-24] MEDS: oxyCODONE/Acetamin 5/325 mg TAB PO PRN (22:23)
[2020-05-25] MEDS: Morphine 2 MG/ML SYRINGE IV PRN ×3 (00:03→21:21)
[2020-05-25] MEDS: DULoxetine DR 20 mg CAP PO SCH (07:48)
[2020-05-25] MEDS ORDERED: Influenza VAC *QUAD* 2020-21* 0.5 ML SYRINGE IM ONE (09:00)
[2020-05-25] MEDS: oxyCODONE/Acetamin 5/325 mg TAB PO PRN (13:11)
[2020-05-25] MEDS ORDERED: Senna TAB 8.6 mg TAB PO PRN (13:29)
[2020-05-25] MEDS: Magnesium Hydroxide LIQ 30 ML UDC PO PRN (18:30)
[2020-05-25 19:20] LABS: HCG Pregnancy < 0.60 mIU/mL
[2020-05-26 05:22] LABS: ABS Eosinophils 0.1 10^3/ul (0-0.6); ABS Monocytes 0.5 10^3/ul (0-0.8); ABS Neutrophils 3.5 10^3/ul (1.5-7.7); Eosinophil % 1.8 %; Hematocrit 35 % (35-47); Hemoglobin 12.3 g/dL (12.0-16.0); Lymphocyte % 42.2 %; Mean Corpuscular HGB Conc 35 g/dL (31-36); Mean Corpuscular Hemoglobin 33 pg (27-31); Mean Corpuscular Volume 93 fL (80-97); Mean Platelet Volume 8.4 fL (7.4-10.4); Platelet Count 202 10^3/uL (150-450); Red Blood Count 3.75 10^6 /uL (3.70-4.87); Red Cell Distribution Width 12 % (10-15); White Blood Count 7.2 10^3/uL (3.5-10.8)
[2020-05-26 05:23] LABS: INR 1.12 (0.82-1.09)
[2020-05-26 05:51] LABS: BUN/Creatinine Ratio 20.8 (8-20); Calcium 8.4 mg/dL (8.6-10.3); EGFR African American 103.2 (>60); EGFR Non-African American 85.3 (>60); Potassium 4.2 mmol/L (3.5-5.0)
[2020-05-26] MEDS: DULoxetine DR 20 mg CAP PO SCH (09:26)
[2020-05-26] MEDS: oxyCODONE/Acetamin 5/325 mg TAB PO PRN (14:26)
[2020-05-26] MEDS: Magnesium Hydroxide LIQ 30 ML UDC PO PRN (15:13)
[2020-05-26] MEDS: Calcium Carb (TUMS) 500 mg CHEW TAB PO PRN (22:01)
[2020-05-27] MEDS: oxyCODONE/Acetamin 5/325 mg TAB PO PRN ×3 (08:13→20:32)
[2020-05-27] MEDS: DULoxetine DR 20 mg CAP PO SCH (08:13)
[2020-05-27] MEDS: Magnesium Hydroxide LIQ 30 ML UDC PO PRN (08:18)
[2020-05-27] MEDS: Morphine 2 MG/ML SYRINGE IV PRN ×2 (12:11→23:09)
[2020-05-28] MEDS: oxyCODONE/Acetamin 5/325 mg TAB PO PRN ×4 (00:45→20:10)
[2020-05-28] MEDS: DULoxetine DR 20 mg CAP PO SCH (09:34)
[2020-05-28] MEDS: Magnesium Hydroxide LIQ 30 ML UDC PO PRN (09:34)
[2020-05-28] MEDS: Morphine 2 MG/ML SYRINGE IV PRN (11:39)
[2020-05-29] MEDS: NS 0.9% 1000 ml BAG 1,000 ML IV SCH ×2 (00:33→13:41)
[2020-05-29] MEDS: Morphine 2 MG/ML SYRINGE IV PRN ×4 (00:39→22:33)
[2020-05-29 05:56] LABS: ABS Basophils 0.1 10^3/ul (0-0.2); ABS Eosinophils 0.2 10^3/ul (0-0.6); ABS Lymphocytes 2.9 10^3/ul (1.0-4.8); ABS Monocytes 0.5 10^3/ul (0-0.8); ABS Neutrophils 3.1 10^3/ul (1.5-7.7); Eosinophil % 2.7 %; Hematocrit 39 % (35-47); Hemoglobin 13.4 g/dL (12.0-16.0); Lymphocyte % 43.4 %; Mean Corpuscular HGB Conc 35 g/dL (31-36); Mean Corpuscular Hemoglobin 32 pg (27-31); Mean Corpuscular Volume 94 fL (80-97); Mean Platelet Volume 8.2 fL (7.4-10.4); Platelet Count 234 10^3/uL (150-450); Red Blood Count 4.15 10^6 /uL (3.70-4.87); Red Cell Distribution Width 12 % (10-15); White Blood Count 6.7 10^3/uL (3.5-10.8)
[2020-05-29] MEDS ORDERED: Buffered Lidocaine 1% SYRIN 1 ml INTRADERM ONE ×3 (06:00→07:14)
[2020-05-29] MEDS ORDERED: Lactated Ringers 1000 ml BAG 1,000 ML IV SCH (06:00)
[2020-05-29 06:11] LABS: Calcium 9.1 mg/dL (8.6-10.3); EGFR African American 94.7 (>60); EGFR Non-African American 78.2 (>60); INR 1.12 (0.82-1.09); Potassium 3.9 mmol/L (3.5-5.0)
[2020-05-29] MEDS ORDERED: fentaNYL 100 mcg/2 ml 50 MCG/ML VIAL ONE ×3 (07:19→10:47)
[2020-05-29] MEDS ORDERED: Midazolam 5 mg/5 ml VIAL 1 mg/ml 5 ml VIAL (5 mg) ONE (07:20)
[2020-05-29] MEDS ORDERED: Lidocaine 2% PF 5 ML VIAL ONE (07:20)
[2020-05-29] MEDS ORDERED: Ondansetron 4 mg VIAL 2 MG/ML 2 ml VIAL ONE (07:20)
[2020-05-29] MEDS ORDERED: Propofol 10 MG/ML 20 ML BTL ONE (07:20)
[2020-05-29] MEDS ORDERED: Bupivacaine 0.25% SDV 30 ML ONE (07:21)
[2020-05-29] MEDS ORDERED: Bacitracin INJECTION 50,000 UNITS ONE (07:21)
[2020-05-29] MEDS ORDERED: Rocuronium 50 mg VIAL 10 mg/ml 5 ml VIAL (50 mg) ONE (07:33)
[2020-05-29] MEDS ORDERED: ceFAZolin 2 GM PREMIX 2 GM/50 ML BAG ONE (07:37)
[2020-05-29] MEDS ORDERED: Ondansetron 4 mg VIAL 2 MG/ML 2 ml VIAL IV PRN ×2 (07:44→11:44)
[2020-05-29] MEDS ORDERED: Naloxone 0.4 mg VIAL 0.4 mg/ml 1 ml VIAL IV PRN (07:44)
[2020-05-29] MEDS: DULoxetine DR 20 mg CAP PO SCH (08:35)
[2020-05-29] MEDS ORDERED: oxyCODONE/Acetamin 5/325 mg TAB ONE (10:25)
[2020-05-29] MEDS: oxyCODONE/Acetamin 5/325 mg TAB PO PRN ×3 (10:27→20:23)
[2020-05-29] MEDS: fentaNYL 100 mcg/2 ml 50 MCG/ML VIAL IV PRN ×4 (10:27→10:59)
[2020-05-29] MEDS ORDERED: HYDROmorphone 0.5 MG/0.5 ML SYRINGE IV SLOW PU ONE (13:37)
[2020-05-29] MEDS: Magnesium Hydroxide LIQ 30 ML UDC PO PRN (20:26)
[2020-05-30] MEDS: oxyCODONE/Acetamin 5/325 mg TAB PO PRN ×2 (03:27→07:23)
[2020-05-30 06:31] LABS: ABS Eosinophils 0.1 10^3/ul (0-0.6); ABS Lymphocytes 2.6 10^3/ul (1.0-4.8); ABS Monocytes 0.7 10^3/ul (0-0.8); ABS Neutrophils 7.7 10^3/ul (1.5-7.7); Eosinophil % 0.5 %; Hematocrit 32 % (35-47); Hemoglobin 11.5 g/dL (12.0-16.0); Lymphocyte % 23.5 %; Mean Corpuscular HGB Conc 36 g/dL (31-36); Mean Corpuscular Hemoglobin 33 pg (27-31); Mean Corpuscular Volume 92 fL (80-97); Platelet Count 205 10^3/uL (150-450); Red Blood Count 3.51 10^6 /uL (3.70-4.87); Red Cell Distribution Width 12 % (10-15); White Blood Count 11.1 10^3/uL (3.5-10.8)
[2020-05-30 06:53] LABS: BUN/Creatinine Ratio 11.8 (8-20); Calcium 8.6 mg/dL (8.6-10.3); EGFR African American 119.1 (>60); EGFR Non-African American 98.5 (>60); Potassium 3.7 mmol/L (3.5-5.0)
[2020-05-30] MEDS: DULoxetine DR 20 mg CAP PO SCH (07:23)
[2020-05-30] MEDS: Calcium Carb (TUMS) 500 mg CHEW TAB PO PRN (07:23)
[2020-05-30 07:38] VITALS: BP 133/79
[2020-05-30] MEDS: Magnesium Hydroxide LIQ 30 ML UDC PO PRN (10:41)
== END 2020-05-30 11:00 | disposition home or self-care (01) | DRG 310 ==
LOC: SSU 11:00 → ED 11:00 → SSU 21:25
PROVIDERS: ADMIT Student in an Organized Health Care Education/Training Program; ATTEND Internal Medicine